=== PATIENT | female | born 1965 | race Two or more races ===

== ENCOUNTER → 2020-10-17 14:20 | Outpatient (CLI) | payer OTHER | END | disposition home or self-care (01) | LOC: PPH VACUNA 14:20 | DX: Z23 Encounter for immunization (principal) ==

== ENCOUNTER → 2020-11-11 09:56 | Outpatient (CLI) | payer OTHER | END | disposition home or self-care (01) | LOC: PPH VACUNA 09:56 | DX: Z23 Encounter for immunization (principal) ==